=== PATIENT | male | born 1980 | race Caucasian/White ===

== ENCOUNTER → 2022-01-17 | Outpatient (CLI) | payer OTHER ==
[2018-07-28 15:05] VITALS: BP 148/65
[~2022-01-17] MED LIST: OMEP20TA63 PO; OXYC1TAB15 PO
== END ==
LOC: LAB 10:05
PROVIDERS: ATTEND Surgery
DX: Z01.812 Encounter for preprocedural laboratory examination (principal); Z20.822 Contact with and (suspected) exposure to COVID-19
CPT/HCPCS: U0003

== ENCOUNTER 2022-01-18 09:09 | Day surgery (SDC) | payer OTHER ==
[~2022-01-18] VITALS: Ht 177.8 cm; Wt 88.1 kg
[2022-01-18] MEDS ORDERED: OMEP20TA63 PO (09:27)
[2022-01-18 09:30] VITALS: BP 146/97
[2022-01-18] MEDS ORDERED: IV RINGERS,LACTATED 1000ML 1,000 ML IV SCH (09:30)
[2022-01-18] MEDS ORDERED: SEVOFLURANE 61 TO 120 MINUTES. IH ONE (09:45)
[2022-01-18] MEDS ORDERED: DEXAMETHASONE SOD PHOS 4 MG/ML VIAL ONE (09:45)
[2022-01-18] MEDS ORDERED: ONDANSETRON PF 4 MG/2 ML VIAL. ONE (09:45)
[2022-01-18] MEDS ORDERED: PROPOFOL 10 MG/ML (20ML) VIAL. IV ONE ×2 (09:45→10:48)
[2022-01-18] MEDS ORDERED: fentaNYL PF VIAL 100 MCG/2 ML VIAL ONE (09:45)
[2022-01-18] MEDS ORDERED: KETAMINE HCL IN NACL, ISO-OSM 50 MG/5 ML SYRINGE ONE (09:45)
[2022-01-18] MEDS ORDERED: MIDAZOLAM HCL/PF 2 MG/2 ML VIAL. ONE (09:45)
[2022-01-18] MEDS ORDERED: BUPIVACAINE-EPI 0.5% 30 ML VIAL KIT. ONE (10:55)
[2022-01-18] MEDS ORDERED: HYDROmorphone 2 MG/ML INJ. ONE (11:04)
[2022-01-18] MEDS ORDERED: ROCURONIUM 50 MG/5 ML VIAL. ONE (11:14)
[2022-01-18] MEDS ORDERED: NEOSTIGMINE METHYLSULFATE 5 MG/5 ML SYRINGE. ONE (11:15)
[2022-01-18] MEDS ORDERED: GLYCOPYRROLATE 1 MG/5 ML VIAL. ONE (11:15)
[2022-01-18] MEDS ORDERED: PHENYLEPHRINE in 0.9% NACL PF 1 MG/10 ML SYRINGE. IV ONE ×2 (11:28→12:22)
[2022-01-18] MEDS ORDERED: NALOXONE 0.4 MG/ML VIAL. ONE (12:36)
[2022-01-18] MEDS ORDERED: fentaNYL PF VIAL 100 MCG/2 ML VIAL IVP PRN ×2 (12:45)
[2022-01-18] MEDS ORDERED: MORPHINE SULFATE 2 MG/ML INJ. IVP PRN (12:45)
[2022-01-18] MEDS ORDERED: PROCHLORPERAZINE 10 MG/2 ML VIAL. IVP PRN (12:45)
[2022-01-18] MEDS ORDERED: HYDROmorphone 2 MG/ML INJ. IVP PRN (12:45)
--- NOTE | 2022-01-18 12:48 | PDOC4 ---
Operative Note Operative Note Operative Note: Preoperative Diagnosis: Bilateral inguinal hernia Postoperative Diagnosis: Same Procedure: Bilateral inguinal hernia repair with mesh Surgeon: Vish Knife Machine Operator: Kim BEJARANO; Rachael Ramos MS 3 Anesthesia: General EBL: 20 mL Specimen: None Drains: None Complications: None Indication: The patient is a 41-year-old male who is referred with bilateral inguinal hernias. He was offered surgical repair. The risks of surgery were discussed which include bleeding, infection, recurrence, pain, anesthetic risk, numbness and tingling, potential need for additional surgery or procedure. He understands and would like to proceed. Description: The patient was taken the operating room and placed supine on the operating table. General anesthesia was performed. The bilateral groins were shaved prepped with ChloraPrep and draped with sterile towels, sheets, and an Ioban. A similar technique was applied on both sides as the hernias were nearly identical. The incisions were made in the groins. Cautery dissection was carried down to the external oblique. The aponeurosis was opened down to the external ring. The contents of the inguinal canal were digitally mobilized and encircled with a [place] drain. The patient had bilateral small to moderate sized direct hernia defects. No indirect hernia sacs were identified. The edges of the defect were clarified. The attenuated transversalis was divided exposing the preperitoneal fat. The defect was filled with an extra-large Phasix plug on each side. The plugs were secured with 2-0 Vicryl. The inguinal floor on both sides were then reinforced with a Prolene keyhole mesh patch. The patches were also secured into position with 2-0 Vicryl. The external oblique was closed over the mesh with 2-0 Vicryl. Subcutaneous tissue was approximated with 3-0 Vicryl. Skin was closed with 4 Monocryl. Both sides were then infiltrated with half percent Marcaine with epinephrine. Steri-Strips and dressings were applied. The patient tolerated the procedure well and was sent to the recovery room in stable condition. At the end the case all counts were correct. MARLYN MCADAMS MD January 18, 2022 12:48
[2022-01-18] MEDS ORDERED: OXYC1TAB15 PO (12:50)
--- NOTE | 2022-01-18 12:52 | DISCH ---
DISCHARGE INSTRUCTIONS Condition on Discharge Condition on Discharge: Stable Activity After Discharge Activity Instructions for Disc: Other, see below (No lifting over 20 lbs, s trenuous activity X 6 weeks; no driving while taking pain meds) Diet after Discharge Diet after Discharge: Regular Wound Incision Care Wound/Incision Care: Other, see below (keep dressings clean and dry X 72 hours, may then remove and shower) Follow-Up Follow up with: Dr Mcadams in 2 weeks in office, call for appointment [phone] MARLYN MCADAMS MD January 18, 2022 12:52
[2022-01-18] MEDS ORDERED: oxyCODONE/APAP 5/325 1 TAB TABLET PO ONE ×2 (13:15)
[2022-01-18 16:30] VITALS: BP 120/78
== END 2022-01-18 17:15 | disposition home or self-care (01) ==
LOC: SURG 09:09
PROVIDERS: ATTEND Surgery
DX: K40.20 Bilateral inguinal hernia, without obstruction or gangrene, not specified as recurrent (principal); K21.9 Gastro-esophageal reflux disease without esophagitis; Z79.899 Other long term (current) drug therapy; Z98.890 Other specified postprocedural states
CPT/HCPCS: 49505; J0690; J1100; J1170; J2250; J2310; J2370; J2405; J2704; J2710; J3010; J3490; A4364; A4452; A4930; A6402; C1781